=== PATIENT | male | born 1965 | race Caucasian/White ===

== ENCOUNTER 2022-07-25 06:04 | Emergency (ER) | payer BC ==
[2022-07-25] MEDS ORDERED: KETOROLAC 30 MG/ML VIAL IVP STA (06:25)
[2022-07-25] MEDS ORDERED: SODIUM CHLORIDE 0.9% 1,000 ML IV STA (06:25)
[2022-07-25 06:30] LABS: BASOPHILS % (AUTO) 0.3 %; EOSINOPHILS # (AUTO) 0.2 10^3/uL (0.0-0.7); EOSINOPHILS % (AUTO) 2.5 %; HCT - HEMATOCRIT 42.6 % (42.0-52.0); HGB - HEMOGLOBIN 14.2 g/dL (14.0-18.0); LYMPHOCYTES # (AUTO) 2.5 10^3/uL (1.5-3.5); LYMPHOCYTES % (AUTO) 41.9 %; MEAN CORPUSCULAR HGB CONC 33.3 g/dL (32.0-36.0); MEAN PLATELET VOLUME 8.3 fL (7.4-11.4); MONOCYTES # (AUTO) 0.6 10^3/uL (0.0-1.0); MONOCYTES % (AUTO) 9.9 %; NEUTROPHILS # (AUTO) 2.7 10^3/uL (1.5-6.6); NEUTROPHILS % (AUTO) 45.2 %; PLT - PLATELET COUNT 196 10^3/uL (130-450); RED BLOOD COUNT 4.58 10^6/uL (4.70-6.10); RED CELL DISTRIBUTION WIDTH 13.4 % (12.0-15.0)
[2022-07-25 06:42] LABS: ALBUMIN/GLOBULIN RATIO 1.3 (1.0-2.2); BILIRUBIN,TOTAL 0.7 mg/dL (0.2-1.0); CALCIUM 9.2 mg/dL (8.5-10.3); CREATININE 0.9 mg/dL (0.6-1.2); POTASSIUM 3.8 mmol/L (3.5-5.0)
--- NOTE | 2022-07-25 06:58 | ED Physician Documentation ---
PD HPI ABD PAIN - Stated complaint Stated Complaint: LOWER BACK PX - Chief complaint Chief Complaint: Abd Pain - History obtained from History obtained from: Patient - History of Present Illness Timing - onset: Last night Timing - duration: Hours Timing - details: Abrupt onset, Still present Quality: Aching, Sharp, Pain Location: LLQ Radiation: Left flank Improved by: No: Laying still, Position Worsened by: No: Moving, Breathing, Position, Palpation Associated symptoms: Nausea, Loss of appetite. No: Fever, Vomiting, Diarrhea, Dysuria Similar symptoms before: Diagnosis (Similar to prior kidney stones he has passed. He was aware of a stone in the kidney present on prior imaging that has not been giving him problems. It was reportedly small but does not know the size per se.) Recently seen: Not recently seen Review of Systems Constitutional: denies: Fever, Chills : denies: Dysuria, Hematuria PD PAST MEDICAL HISTORY - Past Medical History Past Medical History: Yes Cardiovascular: None Respiratory: None Neuro: None : Kidney stones - Past Surgical History Past Surgical History: Yes General: Appendectomy Ortho: Hip replacement - Present Medications Home Medications: Ambulatory Orders Medication Instructions Recorded Confirmed Naproxen 500 mg PO TID #20 tab 07/25/22 Ondansetron Odt [Zofran] 4 mg TL Q6H PRN #10 tablet 07/25/22 Sleeping Pill 07/25/22 Tamsulosin [Flomax] 0.4 mg PO DAILY #5 cap 07/25/22 oxyCODONE [Roxicodone] 5 mg PO Q6H PRN #10 tablet 07/25/22 - Allergies Allergies/Adverse Reactions: Allergies Allergy/AdvReac Type Severity Reaction Status Date / Time No Known Drug Allergies Allergy Verified 07/25/22 06:17 - Social History Does the pt smoke?: No Smoking Status: Never smoker Does the pt drink ETOH?: Yes ETOH Use: Wine Does the pt have substance abuse?: No - Immunizations Immunizations are current?: Yes - POLST Patient has POLST: No PD ED PE NORMAL - Vitals Vital signs reviewed: Yes - General General: Alert and oriented X 3, Well developed/nourished, Other - Cardiac Cardiac: RRR, No murmur - Respiratory Respiratory: Clear bilaterally - Abdomen Abdomen: Soft, Non tender - Male Male : Deferred - Rectal Rectal: Deferred - Back Back: Other (mild left CVA tenderness on first exam but had had some pain meds prior to that. ) - Derm Derm: Normal color, Warm and dry Results - Vitals Vitals: Vital Signs - 24 hr 07/25/22 07/25/22 07/25/22 06:05 06:52 08:14 Temperature 36.4 C L Heart Rate 50 L 51 L 67 Respiratory 20 14 16 Rate Blood Pressure 105/59 L 125/87 H 120/98 H O2 Saturation 98 100 99 Oxygen O2 Source Room air - Labs Labs: Laboratory Tests 07/25/22 07/25/22 07/25/22 06:23 06:23 07:00 WBC 6.0 RBC 4.58 L Hgb 14.2 Hct 42.6 MCV 93.0 MCH 31.0 MCHC 33.3 RDW 13.4 Plt Count 196 MPV 8.3 Neut # (Auto) 2.7 Lymph # (Auto) 2.5 [place] # (Auto) 0.6 Eos # (Auto) 0.2 Baso # (Auto) 0.0 Absolute Nucleated RBC 0.00 Nucleated RBC % 0.0 Sodium 139 Potassium 3.8 Chloride 104 Carbon Dioxide 29 Anion Gap 6.0 BUN 19 Creatinine 0.9 Estimated GFR (MDRD) 87 L Glucose 113 H Calcium 9.2 Total Bilirubin 0.7 AST 30 ALT 31 Alkaline Phosphatase 47 Total Protein 7.0 Albumin 4.0 Globulin 3.0 Albumin/Globulin Ratio 1.3 Lipase 32 Urine Color YELLOW Urine Clarity CLEAR Urine pH 7.5 Ur Specific Omega 1.015 Urine Protein NEGATIVE Urine Glucose (UA) NEGATIVE Urine Ketones NEGATIVE Urine Occult Blood TRACE-INTA Urine Nitrite NEGATIVE Urine Bilirubin NEGATIVE Urine Urobilinogen 0.2 (NORMAL) Ur Leukocyte Esterase NEGATIVE Ur Microscopic Review NOT INDICATED Urine Culture Comments NOT INDICATED PD Medical Decision Making - ED course Complexity details: reviewed results (UA without infection. ), re-evaluated patient, considered differential (Patient had abrupt onset of left flank to left abdominal pain last night during the night and is moving towards the left lower quadrant more this morning. Severe pain associated with nausea. He states feels similar to to prior kidney stones.), d/w patient Reviewed Lab Results: The patient's urine did not show any signs of infection. There is no significant blood but does not preclude the passage of ureteral stone. The patient states he had had imaging of the kidney to evaluate the stone several months ago. I try to track down that imaging just to ensure the most recent stone was not too big. The patient states he was told it was too small to warra nt any lithotripsy etc. so presumption would be less than 1 cm. I called the patient's primary care office, primary care [facility]. They were not fully open yet and I only was able to talk to a medical lab assistant. They did look up imaging for him and were only able to find a scrotal ultrasound from May 2022. This did not reference kidney stone at that time. Comment was just grossly unremarkable kidneys. Shared decision with the patient was not necessarily needing to undergo a CT scan at this time as the control ability and location of the pain suggests a ureteral smaller stone since he does have notable pain into the left lower abdomen. There is no abdominal tenderness to suggest alternatives such as diverticulitis. We can maintain with the presumed diagnosis of ureterolithiasis and treat with appropriate pain medication as well as anti-inflammatory and tamsulosin. He is comfortable with this approach. Drug Therapy Requiring Monitoring for Toxicity: The patient was given IV Toradol as well as Dilaudid to help with the degree of pain. He states the pain improved quite well and is at a minimal amount now that he is a comfortable with. He declined further medications at this time. He did not have any adverse side effects. Departure - Departure Disposition: 01 Home, Self Care Clinical Impression: Left sided abdominal pain, Ureterolithiasis Condition: Stable Instructions: ED Stone Renal W Colic Follow-Up: NEYDA RENTERIA MD [Physician No Access] - Prescriptions: Tamsulosin [Flomax] 0.4 mg PO DAILY #5 cap Naproxen 500 mg PO TID #20 tab oxyCODONE [Roxicodone] 5 mg PO Q6H PRN #10 tablet PRN Reason: Pain Ondansetron Odt [Zofran] 4 mg TL Q6H PRN #10 tablet PRN Reason: Nausea / Vomiting Comments: The imaging we got from the [facility] was actually of the scrotum and was an ultrasound. It is a urinary tract image but does not incorporate the kidneys. They did not see any other imaging at the time I talked with the medical lab assistant there. There may be more records from other facilities in your main chart that Dr. Renteria can reference when the office is open. At this point it seems reasonable to presume a kidney stone that is of a passable size given your pain predominantly in the lower front. It was fairly easy to control the pain without much medication. At this point I do not feel that you need repeat imaging but medication and time to see if this passes. I sent prescriptions to the [facility] in [place] for some anti-inflammatory and a ureteral antispasmodic (Flomax) as well as some more pain medication and also nausea medicine in case. Stay well-hydrated. Use the naproxen anti-inflammatory regularly as well as the Flomax over the next few days. Add Tylenol if needed for pain or your previous morphine or the new pain medication if needed. Recheck if not improving well over the next several days to week. Follow-up with urology next week as planned regarding the cyst but you can discuss the kidney stone if still having some pains from it. Return to the ER if significant pain again despite the above medications. Your urine test was good without any signs of infection. Kidney function was normal on blood test. I am prescribing a short course of narcotic pain medication for you. These are potentially dangerous and addictive medications that should be used carefully. These medications may constipate you. Take an [id number] stool softener such as docusate twice daily with plenty of water while taking these medications. If you go 24 hours without a bowel movement, take [id number] MiraLAX, per package instructions. Do not drink or drive while taking these medications. If you received narcotic or sedating medications while in the emergency depart ment do not drive for 24 hours. Store this medication in a safe, secure place and out of reach of children. It is a violation of federal law to give or sell this medication to another person or to use in a manner other than prescribed. The ED will not refill narcotic prescriptions, including prescriptions lost or stolen. You can dispose of unwanted medications at the [facility]'s office or at several pharmacies such as [facility]. Discharge Date/Time: 07/25/22 08:48
[2022-07-25 07:11] LABS: BILIRUBIN,URINE NEGATIVE (NEGATIVE); GLUCOSE, URINE (UA) NEGATIVE (NEGATIVE); KETONES,URINE (UA) NEGATIVE (NEGATIVE); LEUKOCYTE ESTERASE, URINE NEGATIVE (NEGATIVE); NITRITE,URINE NEGATIVE (NEGATIVE); OCCULT BLOOD,URINE TRACE-INTA (NEGATIVE); PH,URINE 7.5 PH (5.0-7.5); PROTEIN,URINE NEGATIVE (NEGATIVE); UROBILINOGEN,URINE 0.2 (NORMAL) E.U./dL (NORMAL)
[2022-07-25] MEDS ORDERED: TAMSULOSIN 0.4 MG CAPSULE PO STA (07:14)
[2022-07-25] MEDS ORDERED: HYDROmorphone 1 MG/ML CARPUJECT IVP STA (07:14)
[2022-07-25 07:25] LABS: CLARITY,URINE CLEAR (CLEAR)
[2022-07-25 08:48] VITALS: BP 120/98
== END 2022-07-25 08:48 | disposition home or self-care (01) ==
LOC: EDBD → ED 06:04
DX: N20.1 Calculus of ureter (principal); Z87.442 Personal history of urinary calculi
CPT/HCPCS: 36415; 80053; 81003; 83690; 85025; 96374; 96375; 99284; A9270; J1170; 81001; 87086